=== PATIENT | female | born 1960 | race African-American/Black ===

== ENCOUNTER 2022-12-16 18:44 | Emergency (ER) | payer MEDICAID, OTHER ==
[~2022-12-16] VITALS: Ht 162.6 cm; Wt 70.0 kg
[2022-12-16 19:02] VITALS: BP 139/82
== END 2022-12-17 10:31 | disposition home or self-care (01) ==
LOC: ER 18:44
DX: Z45.2 Encounter for adjustment and management of vascular access device (principal); F32.A Depression, unspecified; F20.9 Schizophrenia, unspecified; I10 Essential (primary) hypertension; F41.9 Anxiety disorder, unspecified
CPT/HCPCS: 71045; 99283; Z7610